=== PATIENT | female | born 1960 | race Caucasian/White ===

== ENCOUNTER 2017-07-29 12:02 | Observation (INO) | payer OTHER ==
--- NOTE | 2017-07-29 12:43 | PDOC ---
History of Present Illness - General Chief Complaint: Pain Stated Complaint: LEFT SHOULDER PAIN Time Seen by Provider: 07/29/17 12:05 History Source: Patient Exam Limitations: No Limitations - History of Present Illness Initial Comments: 07/29/17 12:39 The patient is a 57F with a PMH of hypothyroidism who presents to the ER with acute onset shoulder pain. The patient states that she was woken up out of sleep at 0100 this morning with a sudden onset pressure-like shoulder pain which has been constant, nonradiating, without any exacerbating or alleviating factors. She denies any CP, SOB, nausea, vomiting, but admits to feeling clammy and lightheaded. She states her father had a CABG at age 65. She also states she was evaluated for angina 10 years ago and has a hx of HTN but is no longer on any medications as it has resolved. Past History - Past Medical History Allergies/Adverse Reactions: Allergies Allergy/AdvReac Type Severity Reaction Status Date / Time No Known Allergies Allergy Verified 07/29/17 12:11 Home Medications: Ambulatory Orders Levothyroxine [Synthroid -] 100 mcg PO DAILY 11/13/15 Aspirin [ASA -] 324 mg PO ONCE PRN 07/29/17 COPD: No HTN: Yes (states no longer needs med) Thyroid Disease: Yes - Surgical History Abdominal Surgery: Yes (gastric bypass,sling) Cholecystectomy: Yes - Suicide/Smoking/Psychosocial Hx Smoking Status: No Smoking History: Never smoked Have you smoked in the past 12 months: No Number of Cigarettes Smoked Daily: 0 Information on smoking cessation initiated: No Hx Alcohol Use: No Drug/Substance Use Hx: No Substance Use Type: None Review of Systems - Review of Systems Able to Perform ROS?: Yes Comments:: 07/29/17 13:17 GENERAL/CONSTITUTIONAL: No fever or chills. No weakness. HEAD, EYES, EARS, NOSE AND THROAT: No change in vision. No ear pain or discharge. No sore throat. CARDIOVASCULAR: Positive for lightheadedness. No chest pain or palpitations. RESPIRATORY: No cough, wheezing, shortness of breath, or hemoptysis. GASTROINTESTINAL: No nausea, vomiting, diarrhea, constipation, or abdominal pain. GENITOURINARY: No dysuria, frequency, hematuria, or change in urination. MUSCULOSKELETAL: Positive for L shoulder pain which radiates to lateral L neck. SKIN: No rash or lesions. NEUROLOGIC: No headache, numbness, tingling, weakness, loss of consciousness, or change in strength/sensation. ENDOCRINE: No increased thirst. No abnormal weight change. HEMATOLOGIC/LYMPHATIC: No anemia, easy bleeding, or history of blood clots. ALLERGIC/IMMUNOLOGIC: No hives or skin allergy. Is the patient limited [place] proficient: No *Physical Exam - Physical Exam Comments: 07/29/17 13:25 GENERAL: Well developed, well nourished. Awake and alert. No acute distress. HEENT: Normocephalic, atraumatic. Hearing grossly normal. Moist mucous membranes. PERRLA, EOMI. No conjunctival pallor. Sclera are non-icteric. NECK: Supple. Full ROM. CARDIOVASCULAR: Regular rate and rhythm. No murmurs, rubs, or gallops. PULMONARY: No evidence of respiratory distress. Lungs clear to auscultation bilaterally. No wheezing, rales or rhonchi. ABDOMINAL: Soft. Non-tender. Non-distended. No rebound or guarding. GENITOURINARY: No CVA tenderness bilaterally. MUSCULOSKELETAL: Normal range of motion at all joints. No bony deformities or tenderness. EXTREMITIES: No cyanosis. No clubbing. No edema. No calf tenderness or swelling. SKIN: Warm and dry. Normal capillary refill. No rashes. No jaundice. NEUROLOGICAL: Alert, awake, appropriate. Cranial nerves 2-12 intact. Normal speech. Gait is normal without ataxia. PSYCHIATRIC: Cooperative. Good eye contact. Appropriate mood and affect. Heart Score/ECG Review #1 ECG reviewed & interpreted by me at: 13:01 General ECG Interpretation: Sinus Rhythm, Normal Rate, Normal Intervals, No acute ischemic changes Compared to previous ECG there are: Changes noted (See remarks) 07/29/17 13:27 NSR Vent rate 79 HI 150 QRS 82 QTc 447 LVH noted in aVL Unchanged T wave inversions in III and flattening in aVF No JONATAHN or STD ED Treatment Course - LABORATORY CBC & Chemistry Diagram: 07/29/17 12:25 07/29/17 12:25 Medical Decision Making - Medical Decision Making 07/29/17 13:37 The patient is a 57F with a PMH of hypothyroidism who presents with shoulder pain that is concerning for ACS. Pt has a positive family history, distant hx of angina and HTN. Will r/o ACS with EKG and trop. CXR, shoulder XR, CBC, CMP, trop, and EKG unremarkable. Given pt 325 asa. Heart score 4. Will admit for obs for cardiac workup. 07/29/17 15:14 I have discussed the case with Dr. Munoz who admits for Dr. Holder. He recommends following up with second trop. However, we agreed that if the patient has persistent pain, we can observe her even with a negative trop to monitor her pain and for repeat EKG's. Second EKG unremarkable. Pending second trop. 07/29/17 15:31 Repeat troponin negative. Pt is continuing to have pain and fluctuating BP's. Will order CTA of neck and chest. 07/29/17 17:00 CTA negative. Pt still complaining of L arm pain. Will admit to hospital for observation. Pt endorsed to Dr. Munoz. *DC/Admit/Observation/Transfer Diagnosis at time of Disposition: Chest pain - Discharge Dispostion Condition at time of disposition: Stable - Referrals Referrals: Tono Holder MD [Primary Care Provider] - - Patient Instructions - Post Discharge Activity
[2017-07-29 12:49] LABS: BASO % 0.7 % (0-2.0); EOS % 1.3 % (0-4.5); HEMATOCRIT 44.1 % (32.4-45.2); HEMOGLOBIN 14.7 GM/dl (10.7-15.3); LYMPH % 31.4 % (8-40); MCH 30.8 pg (25.7-33.7); MCHC 33.4 g/dl (32.0-36.0); MEAN CELL VOLUME 92.1 fl (80-96); MEAN PLT VOLUME 8.5 fl (7.5-11.1); MONO % 12.8 % (3.8-10.2); NEUT % 53.8 % (42.8-82.8); PLATELET COUNT 381 K/MM3 (134-434); RBC 4.78 M/mm3 (3.60-5.2); RDW 12.2 % (11.6-15.6); WHITE BLOOD COUNT 5.8 K/mm3 (4.0-10.8)
[2017-07-29] MEDS ORDERED: ASPIRIN COATED 81 MG TABLET.EC PO ONE (12:51)
[2017-07-29] MEDS ORDERED: ASPIRIN 325 MG TABLET ONE (12:52)
[2017-07-29 12:57] LABS: ALBUMIN 4.3 g/dl (3.5-5.0); ALK PHOS 98 U/L (32-92); ANION GAP 7 (8-16); BILIRUBIN,TOTAL 0.6 mg/dl (0.2-1.0); BLOOD UREA NITROGEN 10 mg/dl (7-18); CALCIUM 9.1 mg/dl (8.4-10.2); CHLORIDE 97 mmol/L (98-107); CO2 27 mmol/L (22-28); GLUCOSE,RANDOM 98 mg/dl (74-106); POTASSIUM 3.5 mmol/L (3.5-5.1); SGOT/AST 33 U/L (10-42); SGPT/ALT 34 U/L (10-40); SODIUM 131 mmol/L (136-145); TOT PROT 7.9 g/dl (6.4-8.3)
--- NOTE | 2017-07-29 13:01 | PDOC ---
Attending Attestation - Resident Resident Name: Jose Enrique Fernandez - ED Attending Attestation I have performed the following: I have examined & evaluated the patient, The case was reviewed & discussed with the resident, I agree w/resident's findings & plan, Exceptions are as noted - HPI HPI: 07/29/17 13:01 57-year-old female with a history of angina, hypothyroidism, hypertension ( was taken off BP meds 1 year ago due to lower BPs) presents emergency Department with sudden onset left shoulder pain radiating up the left neck and down the left proximal arm since 1 AM last night. Patient reports the pain woke her up from sleep and describes it as a "tightness." Patient was sleeping on her back at the time. Denies any recent trauma. She states the pain has been persistent and occurs at rest and with ambulation. While at work today, the patient appeared uncomfortable and her coworkers asked her what was wrong at which point she became clammy and lightheaded. At that point the patient transported herself to the emergency department for further evaluation. Denies any history of similar symptoms. Denies any shortness of breath. Denies smoking. Reports her father had a cardiac bypass at age 64. Patient was last evaluated by warehouse man 10 years ago and reports that she had a normal stress test and echo at the time. Denies fevers, chills, coughing. Denies any lower extremity edema. Denies focal weakness or numbness. Denies nausea or vomiting. - Physicial Exam PE: 07/29/17 13:05 GENERAL: Awake, alert, and fully oriented, in no acute distress HEAD: No signs of trauma EYES: PERRLA, EOMI, sclera anicteric, conjunctiva clear ENT: Auricles normal inspection, hearing grossly normal, nares patent, oropharynx clear without exudates. Moist mucosa NECK: Normal ROM, supple, no lymphadenopathy, JVD, or masses LUNGS: Breath sounds equal, clear to auscultation bilaterally. No wheezes, and no crackles HEART: Regular rate and rhythm, normal S1 and S2, no murmurs, rubs or gallops ABDOMEN: Soft, nontender, normoactive bowel sounds. No guarding, no rebound. No masses EXTREMITIES: Normal range of motion, no edema. No clubbing or cyanosis. No cords, erythema, or tenderness NEUROLOGICAL: Normal speech, cranial nerves intact, negative pronator drift, 5/ 5 strength in all 4 extremities, normal sensation to light touch in all 4 extremities, normal cerebellar exam, normal gait, normal reflexes and tone SKIN: Warm, Dry, normal turgor, no rashes or lesions noted. - Medical Decision Making 07/29/17 13:05 57-year-old female with a history of angina, hypertension, hypothyroidism presents emergency Department with atraumatic nonreproducible left shoulder pain. Vitals with mildly elevated blood pressure to 140/85. Exam unremarkable. EKG with evidence of left ventricular hypertrophy but no ST elevations. Patient also has T-wave inversion in lead 3 and flattening in aVF which is unchanged compared to old EKG. Differential is wide and includes but is not limited to unstable angina versus acute coronary syndrome versus musculoskeletal pain. Patient's heart score is 4-5 assuming a negative troponin. Plan: -labs -cxr -dispo 07/29/17 14:41 Initial set of labs wnl. CXR nl. Pt still has some persistent L shoulder pain and now also a gradual onset frontal headache. Case discussed with Dr. Munoz ( covering for Dr. Holder). Dr. Munoz recommends that if she feels better, we DC and have her f/u with him as her symptoms are atypical, with normal EKG and trops. He recommended that if pt has persistent sxs, however, that we should admit her overnight. Pt ordered for tylenol for pain, will rpt troponin at 3pm and reassess. 07/29/17 15:35 Rpt trop negative. On re-assessment, headache is resolved but pt states pain is migrating from L neck/shoulder down to her L chest. BP elevated and labile on recheck. Pt states she also feels nauseous. Given concern for dissection, will obtain CTA chest w/wo with higher cuts through the neck. 07/29/17 16:59 CTA negative for dissection but patient has more coronory artery calcifications than expected for age. Case discussed with Dr. Munoz who accepts pt for admission. Case discussed in detail with admitting physician including history, physical exam and ancillary studies. Admitting physician has assumed care for the patient, will follow all pending diagnostics and will complete the evaluation and treatment. Discharge Disposition - Diagnosis Chest pain - Discharge Dispostion Condition at time of disposition: Stable Last Admission D/C Date: 09/11/12 Decision to Admit order: Yes - Referrals Referrals: Tono Holder MD [Primary Care Provider] - - Patient Instructions - Post Discharge Activity Heart Score/ECG Review - History History: Moderately suspicious - Electrocardiogram EKG: Non specific repolarization disturbance - Age Age: 45-65 - Risk Factors Risk Factors Heart Score: Yes Hx Hypertension, Yes Positive family hx of cardiac disease Based on the list above the patient has:: 1-2 risk factors - Troponin Troponin: </= normal limit - Score Heart Score - Total: 4 #1 07/29/17 13:09 Twelve-lead EKG was performed and reviewed by me. Normal sinus rhythm, rate 79. Left axis deviation. Left ventricular hypertrophy. T wave inversion in lead 3 with T-wave flattening in aVF. Compared to previous EKG, left ventricular hypertrophy is new. #2 07/29/17 17:01 Twelve-lead EKG was performed and reviewed by me. Normal sinus rhythm, rate 63. Left axis deviation.+ LVH. No ST elevations. T wave inversion in lead 3 and T- wave flattening in aVF. When compared to EKG done 2 hours ago, no changes are identified.
[2017-07-29 13:04] LABS: CREATININE < 0.8 mg/dl (0.6-1.3)
[2017-07-29] MEDS ORDERED: ACETAMINOPHEN 1000 MG/100 ML VIAL (NON FORMULARY) IVPB ONE (14:07)
[2017-07-29] MEDS ORDERED: ACETAMINOPHEN INJECTION 100 ML IVPB ONE (14:13)
[2017-07-29] MEDS ORDERED: ONDANSETRON 4 MG/2 ML VIAL IVPUSH ONE (15:49)
[2017-07-29] MEDS ORDERED: ONDANSETRON 4 MG/2 ML VIAL ONE (16:05)
[2017-07-29 18:27] VITALS: BMI 27.0
[2017-07-29] MEDS ORDERED: IBUPROFEN 400 MG TABLET (FP) PO PRN (18:32)
--- NOTE | 2017-07-29 18:33 | HP ---
Admitting History and Physical - Primary Care Physician PCP: Tono Holder - Admission History of Present Illness: Er records reviewed. Case discussed with er physician. Per er records The patient is a 57F with a PMH of hypothyroidism who presents to the ER with acute onset shoulder pain. The patient states that she was woken up out of sleep at 0100 this morning with a sudden onset pressure-like shoulder pain which has been constant, nonradiating, without any exacerbating or alleviating factors. She denies any CP, SOB, nausea, vomiting, but admits to feeling clammy and lightheaded. She states her father had a CABG at age 65. She also states she was evaluated for angina 10 years ago and has a hx of HTN but is no longer on any medications as it has resolved. Pt seen / examined in tele mi ruled out ekgs - unremarkable cta -ve Pt kept for observation due to persistent vanegas. pt feels better now. History Source: Patient Limitations to Obtaining History: No Limitations - Past Medical History Endocrine: Yes: Hypothyroidism - Smoking History Smoking history: Never smoked Have you smoked in the past 12 months: No Aproximately how many cigarettes per day: 0 - Alcohol/Substance Use Hx Alcohol Use: No Home Medications - Allergies Allergies/Adverse Reactions: Allergies Allergy/AdvReac Type Severity Reaction Status Date / Time No Known Allergies Allergy Verified 07/29/17 12:11 - Home Medications Home Medications: Ambulatory Orders Levothyroxine [Synthroid -] 100 mcg PO DAILY 11/13/15 Aspirin [ASA -] 324 mg PO ONCE PRN 07/29/17 Review of Systems - Review of Systems Constitutional: reports: No Symptoms Eyes: reports: No Symptoms HENT: reports: No Symptoms Neck: reports: No Symptoms Cardiovascular: reports: Other (left shoulder pain/ chest pain) Respiratory: reports: No Symptoms Gastrointestinal: reports: No Symptoms Genitourinary: reports: No Symptoms Neurological: reports: No Symptoms Psychiatric: reports: No Symptoms Physical Examination Vital Signs: Vital Signs Temperature 97.8 F 07/29/17 18:25 Pulse Rate 66 07/29/17 18:25 Respiratory Rate 18 07/29/17 18:25 Blood Pressure 134/80 07/29/17 18:25 O2 Sat by Pulse Oximetry (%) 98 07/29/17 15:43 Constitutional: Yes: No Distress, Calm Eyes: Yes: Conjunctiva Clear Neck: Yes: Supple, Trachea Midline Cardiovascular: Yes: Regular Rate and Rhythm Respiratory: Yes: CTA Bilaterally Gastrointestinal: Yes: Normal Bowel Sounds, Soft Edema: No Neurological: Yes: Alert Psychiatric: Yes: Alert Labs: CBC, BMP 07/29/17 12:25 07/29/17 12:25 Imaging - Results Chest X-ray: Report Reviewed X-ray: Report Reviewed EKG: Report Reviewed Problem List - Problems (1) Chest pain Code(s): R07.9 - CHEST PAIN, UNSPECIFIED Assessment/Plan Aypical cp Unlikely color television console monitor tonight If stable - d/c in am Stress test advised as out pt - Discussed in detail with pt. Pt in agreement Discussed with nursing staff also
[2017-07-29] MEDS ORDERED: ASPIRIN 325 MG TABLET PO ONE (18:45)
[2017-07-29] MEDS: ACETAMINOPHEN 325 MG TABLET (FP) PO PRN (20:03)
[2017-07-29] MEDS ORDERED: HEPARIN NA (PORCINE) 5,000 UNITS/ML 1ML VIAL SQ SCH (22:00)
[2017-07-30] MEDS ORDERED: LEVOTHYROXINE NA 100 MCG TABLET (FP) PO SCH (07:00)
[2017-07-30 07:03] VITALS: BP 132/76; PULSE 59; TEMP 97.9
[2017-07-30 07:53] LABS: BASO % 0.6 % (0-2.0); EOS % 2.3 % (0-4.5); HEMATOCRIT 38.4 % (32.4-45.2); HEMOGLOBIN 13.2 GM/dl (10.7-15.3); LYMPH % 27.5 % (8-40); MCH 31.7 pg (25.7-33.7); MCHC 34.4 g/dl (32.0-36.0); MEAN CELL VOLUME 92.2 fl (80-96); MEAN PLT VOLUME 8.3 fl (7.5-11.1); MONO % 11.4 % (3.8-10.2); NEUT % 58.2 % (42.8-82.8); PLATELET COUNT 285 K/MM3 (134-434); RBC 4.16 M/mm3 (3.60-5.2); RDW 12.2 % (11.6-15.6); WHITE BLOOD COUNT 5.5 K/mm3 (4.0-10.8)
[2017-07-30] MEDS: ACETAMINOPHEN 325 MG TABLET (FP) PO PRN (08:23)
[2017-07-30 08:34] LABS: ALBUMIN 3.5 g/dl (3.5-5.0); ALK PHOS 82 U/L (32-92); ANION GAP 9 (8-16); BILIRUBIN,TOTAL 0.6 mg/dl (0.2-1.0); BLOOD UREA NITROGEN 9 mg/dl (7-18); CHLORIDE 98 mmol/L (98-107); CO2 27 mmol/L (22-28); GLUCOSE,RANDOM 197 mg/dl (74-106); POTASSIUM 3.8 mmol/L (3.5-5.1); SGOT/AST 28 U/L (10-42); SGPT/ALT 26 U/L (10-40); SODIUM 134 mmol/L (136-145); TOT PROT 6.5 g/dl (6.4-8.3)
[2017-07-30 08:39] LABS: CREATININE < 0.8 mg/dl (0.6-1.3)
[2017-07-30 08:40] LABS: CHOLESTEROL 245 mg/dl; HDL CHOLESTEROL 57 mg/dl (29-89); LDL CHOLESTEROL (ONLY DFH) 155 mg/dl; TRIGLYCERIDES 165 mg/dl (35-160)
--- NOTE | 2017-07-30 11:09 | DS ---
Physical Examination Vital Signs: Vital Signs Temperature 97.9 F 07/30/17 06:00 Pulse Rate 59 L 07/30/17 06:00 Respiratory Rate 20 07/30/17 06:00 Blood Pressure 132/76 07/30/17 06:00 O2 Sat by Pulse Oximetry (%) 97 07/30/17 06:00 Findings/Remarks: feels ok concerned about bp. wants to start meds Also contributes to stress denies cp. no sob lipid elevated Constitutional: Yes: No Distress, Calm Eyes: Yes: Conjunctiva Clear Neck: Yes: Supple Cardiovascular: Yes: Regular Rate and Rhythm Respiratory: Yes: CTA Bilaterally Gastrointestinal: Yes: Soft Edema: No Labs: CBC, BMP 07/30/17 07:33 07/30/17 07:33 Discharge Summary Reason For Visit: LEFT SHOULDER PAIN Current Active Problems Chest pain (Acute) Hospital Course: Admitted for atypical cp. RI/ dissection ruled out will start on amlodipine/ lipitor/ baby asprin. Counselling provided about diet/ cholesterol/ bp etc stress test as out pt pt to follow with Dr. Gallo hidalgo Pt in agreement Discussed with nursing staqff TSH is pending Meds reconciled. D/c time 35 min . Condition: Stable - Instructions Referrals: Tono Holder MD [Primary Care Provider] - Disposition: HOME - Home Medications Comprehensive Discharge Medication List: Ambulatory Orders Levothyroxine [Synthroid -] 100 mcg PO DAILY 11/13/15 Acetaminophen [Tylenol .Regular Strength -] 650 mg PO Q4H PRN tablet 07/30/17 Amlodipine Besylate [Norvasc -] 5 mg PO DAILY #30 tablet 07/30/17 Aspirin [ASA -] 81 mg PO DAILY #30 tab.chew 07/30/17 Atorvastatin Ca [Lipitor] 10 mg PO HS #30 tablet 07/30/17 Ibuprofen [Motrin -] 400 mg PO Q6H PRN tablet 07/30/17
--- NOTE | 2017-07-31 22:38 | EKG ---
Test Reason : Blood Pressure : / mmHG Vent. Rate : 063 BPM Atrial Rate : 063 BPM P-R Int : 156 ms QRS Dur : 082 ms QT Int : 434 ms P-R-T Axes : 048 -28 -03 degrees QTc Int : 444 ms NORMAL SINUS RHYTHM MINIMAL VOLTAGE CRITERIA FOR LVH, MAY BE NORMAL VARIANT BORDERLINE ECG WHEN COMPARED WITH ECG OF 29-JUL-2017 12:19, NO SIGNIFICANT CHANGE WAS FOUND Confirmed by GERARDO HARPER MD ([id number]) on 07/31/2017 10:38:27 PM Referred By: Amberly MCCURDY Confirmed By:GERARDO HARPER MD
--- NOTE | 2017-07-31 22:39 | EKG ---
Test Reason : Blood Pressure : / mmHG Vent. Rate : 079 BPM Atrial Rate : 079 BPM P-R Int : 150 ms QRS Dur : 082 ms QT Int : 390 ms P-R-T Axes : 039 -31 002 degrees QTc Int : 447 ms NORMAL SINUS RHYTHM POSSIBLE LEFT ATRIAL ENLARGEMENT LEFT AXIS DEVIATION LEFT VENTRICULAR HYPERTROPHY ABNORMAL ECG WHEN COMPARED WITH ECG OF 26-JUL-2013 20:04, NO SIGNIFICANT CHANGE WAS FOUND Confirmed by GERARDO HARPER MD ([id number]) on 07/31/2017 10:38:44 PM Referred By: Amberly MCCURDY Confirmed By:GERARDO HARPER MD
== END 2017-07-30 11:40 | disposition home or self-care (01) ==
LOC: FER 12:02 → FM/S 16:59
PROVIDERS: ADMIT Internal Medicine; ATTEND Internal Medicine
PROC: 3E033NZ Introduction of Analgesics, Hypnotics, Sedatives into Peripheral Vein, Percutaneous Approach (ICD-10-PCS; principal; 2017-07-29)
PROC: 3E033GC Introduction of Other Therapeutic Substance into Peripheral Vein, Percutaneous Approach (ICD-10-PCS; 2017-07-29)
PROC: 3E013GC Introduction of Other Therapeutic Substance into Subcutaneous Tissue, Percutaneous Approach (ICD-10-PCS; 2017-07-29)
DX: R07.9 Chest pain, unspecified (principal); M25.512 Pain in left shoulder; E03.9 Hypothyroidism, unspecified; Z79.82 Long term (current) use of aspirin; Z98.84 Bariatric surgery status
CPT/HCPCS: 36415; 71046-TC-FY; 71270-TC; 73030-TC-LT-FY; 80053; 80061; 84443; 84484; 85025; 93005; 99285-25; G0378; J0131; J1644

== ENCOUNTER 2018-05-23 10:23 | Emergency (ER) | payer OTHER ==
[2018-05-23 10:27] VITALS: TEMP 97.6; BMI 25.5
--- NOTE | 2018-05-23 10:39 | PDOC ---
History of Present Illness - General Chief Complaint: Back Pain Stated Complaint: righ lower back pain Time Seen by Provider: 05/23/18 10:31 History Source: Patient (Patient complains of left lower back pain , frequent urination and foul smell of her urine.) Exam Limitations: No Limitations - History of Present Illness Timing/Duration: unsure, getting worse Severity: moderate Past History - Travel Traveled outside of the country in the last 30 days: No Close contact w/someone who was outside of country & ill: No - Past Medical History Allergies/Adverse Reactions: Allergies Allergy/AdvReac Type Severity Reaction Status Date / Time No Known Allergies Allergy Verified 05/23/18 10:24 Home Medications: Ambulatory Orders Levothyroxine [Synthroid -] 100 mcg PO DAILY 11/13/15 Ibuprofen [Motrin -] 400 mg PO Q6H PRN tablet 07/30/17 levoFLOXacin [Levaquin] 750 mg PO DAILY #5 tab 05/23/18 COPD: No HTN: Yes Thyroid Disease: Yes - Surgical History Abdominal Surgery: Yes (gastric bypass,sling) Cholecystectomy: Yes Other Surgical History: hysterectomy 05/30/18 18:03 - Suicide/Smoking/Psychosocial Hx Smoking Status: No Smoking History: Never smoked Have you smoked in the past 12 months: No Number of Cigarettes Smoked Daily: 0 Hx Alcohol Use: No Drug/Substance Use Hx: No Substance Use Type: None Review of Systems - Review of Systems Able to Perform ROS?: Yes Is the patient limited Citizen [place] proficient: Yes Constitutional: Yes: Symptoms Reported, Malaise HEENTM: No: Symptoms Reported, See HPI, Eye Pain, Blurred Vision, Tearing, Recent change in vision, Double Vision, Cataracts, Ear Pain, Ocular Prothesis, Ear Discharge, Nose Pain, Nose Congestion, Tinnitus, Nose Bleeding, Hearing Loss , Throat Pain, Throat Swelling, Mouth Pain, Dental Problems, Difficulty Swallowing, Mouth Swelling, Other Respiratory: No: Symptoms reported, See HPI, Cough, Orthopnea, Shortness of Breath, SOB with Exertion, SOB at Rest, Stridor, Wheezing, Productive cough, Hemoptysis, Other Cardiac (ROS): No: Symptoms Reported, See HPI, Chest Pain, Edema, Irregular Heart Rate, Lightheadedness, Palpitations, Syncope, Chest Tightness, Other ABD/GI: No: Symptoms Reported, See HPI, Abdominal Distended, Abd. Pain w/ defecation, Blood Streaked Bowels, Constipated, Diarrhea, Difficulty Swallowing , Nausea, Poor Appetite, Poor Fluid Intake, Rectal Bleeding, Vomiting, Indigestion, Abdominal cramping, Tarry Stools, Other : Yes: Dysuria, Frequency, Flank Pain Musculoskeletal: No: Symptoms Reported, See HPI, Back Pain, Gout, Joint Pain, Joint Swelling, Muscle Pain, Muscle Weakness, Neck Pain, Joint Stiffness, Other All Other Systems: Reviewed and Negative *Physical Exam - Vital Signs Last Vital Signs Temp Pulse Resp BP Pulse Ox 97.6 F 88 18 146/100 100 05/23/18 10:23 05/23/18 10:23 05/23/18 10:23 05/23/18 10:23 05/23/18 10:23 - Physical Exam General Appearance: Yes: Nourished, Appropriately Dressed, Moderate Distress HEENT: positive: SUZY Neck: positive: Supple Respiratory/Chest: positive: Lungs Clear Musculoskeletal: positive: Normal Inspection Extremity: positive: Normal Capillary Refill Integumentary: positive: Normal Color, Dry Neurologic: positive: Fully Oriented, Alert ED Treatment Course - LABORATORY CBC & Chemistry Diagram: 05/23/18 10:56 05/23/18 10:56 *DC/Admit/Observation/Transfer Diagnosis at time of Disposition: UTI (urinary tract infection) Qualifiers: Urinary tract infection type: acute cystitis Hematuria presence: with hematuria Qualified Code(s): N30.01 - Acute cystitis with hematuria - Discharge Dispostion Disposition: HOME Condition at time of disposition: Improved Decision to Admit order: No - Prescriptions Prescriptions: levoFLOXacin [Levaquin] 750 mg PO DAILY #5 tab - Referrals Referrals: Tono Holder MD [Staff Physician] - - Patient Instructions Printed Discharge Instructions: DI for Urinary Tract Infection (UTI) Additional Instructions: Fluids, check with your doctor - Post Discharge Activity Forms/Work/School Notes: Back to Work
[2018-05-23 11:35] LABS: ALBUMIN 3.6 g/dl (3.4-5.0); ALK PHOS 101 U/L (45-117); ANION GAP 9 MMOL/L (8-16); BILIRUBIN,TOTAL 0.5 mg/dl (0.2-1); BLOOD UREA NITROGEN 7 mg/dl (7-18); CALCIUM 8.5 mg/dl (8.5-10); CHLORIDE 98 mmol/L (98-107); CO2 25 mmol/L (21-32); CREATININE 0.6 mg/dl (0.55-1.3); GLUCOSE,RANDOM 110 mg/dl (74-106); SGOT/AST 22 U/L (15-37); SGPT/ALT 13 U/L (13-61); SODIUM 132 mmol/L (136-145); TOT PROT 6.6 g/dl (6.4-8.2)
[2018-05-23 11:37] LABS: BASO % 0.2 % (0-2.0); EOS % 0.7 % (0-4.5); HEMATOCRIT 38.5 % (32.4-45.2); HEMOGLOBIN 12.5 GM/dl (10.7-15.3); LYMPH % 22.3 % (8-40); MCH 29.4 pg (25.7-33.7); MCHC 32.5 g/dl (32.0-36.0); MEAN CELL VOLUME 90.5 fl (80-96); MEAN PLT VOLUME 9.1 fl (7.5-11.1); MONO % 14.5 % (3.8-10.2); NEUT % 62.3 % (42.8-82.8); PLATELET COUNT 410 K/MM3 (134-434); RBC 4.26 M/mm3 (3.60-5.2); RDW 13.8 % (11.6-15.6); WHITE BLOOD COUNT 5.6 K/mm3 (4.0-10.8)
[2018-05-23] MEDS ORDERED: IBUPROFEN 600 MG TABLET (FP) PO ONE ×2 (12:30→12:32)
[2018-05-23] MEDS ORDERED: levoFLOXacin 750 MG TABLET PO SCH (12:30)
[2018-05-23 12:54] VITALS: BP 150/91; PULSE 86
[2018-05-24 14:24] LABS: EPI CELLS 1+ /HPF; URINE BACTERIA 3+ /hpf (NEGATIVE)
== END 2018-05-23 12:59 | disposition home or self-care (01) ==
LOC: FER 10:23
DX: N30.01 Acute cystitis with hematuria (principal); I10 Essential (primary) hypertension; E07.9 Disorder of thyroid, unspecified; Z98.84 Bariatric surgery status
CPT/HCPCS: 36415; 76775-TC; 76856-TC; 80053; 81015; 85025; 87086; 87186; 99283-25

== ENCOUNTER 2018-08-23 20:10 | Emergency (ER) | payer OTHER ==
[2018-08-23 20:27] VITALS: BP 155/94; PULSE 92; TEMP 97.9; BMI 26.2
--- NOTE | 2018-08-23 22:03 | PDOC ---
Documentation entered by Siena Barba SCRIBE, acting as scribe for Mirella Funez MD. Mirella Funez MD: This documentation has been prepared by the Jameson morel Sammi, SCRIBE, under my direction and personally reviewed by me in its entirety. I confirm that the documentation accurately reflects all work, treatment, procedures, and medical decision making performed by me. History of Present Illness - General Chief Complaint: Edema Stated Complaint: RIGHT FOOT SWELLING TODAY Time Seen by Provider: 08/23/18 20:22 History Source: Patient Exam Limitations: No Limitations - History of Present Illness Initial Comments: 08/23/18 20:32 The patient is a 58 year old female, who presents to the emergency department for evaluation of right foot swelling and discomfort. Denies injury or trauma. Denies recent travel. PAST MEDICAL HISTORY: Thyroid disease PAST SURGICAL HISTORY: no significant history FAMILY HISTORY: mother has hx of blood clots SOCIAL HISTORY: Pt lives with family and is employed. MEDICATIONS: reviewed ALLERGIES: As per nursing notes Adult ROS General: No fevers or chills, no weakness, no weight loss HEENT: No change in vision. No sore throat,. No ear pain CardioVascular: No chest pain or shortness of breath Respiratory:No cough, or wheezing. Gastrointestinal: no nausea, vomiting, diarrhea or constipation, No rectal bleeding Genitourinary: No dysuria, hematuria, or frequency Musculoskeletal: (+)Right foot swelling and discomfort All other systems reviewed and normal Adult Exam GENERAL: The patient is awake, alert, and fully oriented, in no acute distress. HEAD: Normal with no signs of trauma. EYES: Pupils equal, round and reactive to light, extraocular movements intact, sclera anicteric, conjunctiva clear. EXTREMITIES: (+) mild edema to dorsum of right foot. No edema to ankle, calf or knee. NEUROLOGICAL: Normal speech, normal gait. SKIN: Warm, Dry, normal turgor, no rashes or lesions noted. Assessment and plan: This is a 58-year-old female who comes in complaining of right foot swelling. Patient has a family history of DVTs. Patient otherwise denies any complaints. Patient denies any trauma or pain to the foot. Patient had an ultrasound that was negative for any DVT Patient discharged home will follow-up with her primary care doctor Past History - Past Medical History Allergies/Adverse Reactions: Allergies Allergy/AdvReac Type Severity Reaction Status Date / Time No Known Allergies Allergy Verified 08/23/18 20:11 Home Medications: Ambulatory Orders Levothyroxine [Synthroid -] 100 mcg PO DAILY 11/13/15 COPD: No HTN: Yes Thyroid Disease: Yes - Surgical History Abdominal Surgery: Yes (gastric bypass,sling) Cholecystectomy: Yes Gastric Stapling: Yes - Suicide/Smoking/Psychosocial Hx Smoking Status: No Smoking History: Never smoked Have you smoked in the past 12 months: No Number of Cigarettes Smoked Daily: 0 Hx Alcohol Use: Yes (SOCIAL) Drug/Substance Use Hx: No Substance Use Type: None *Physical Exam - Vital Signs Last Vital Signs Temp Pulse Resp BP Pulse Ox 97.9 F 92 H 16 155/94 100 08/23/18 20:11 08/23/18 20:11 08/23/18 20:11 08/23/18 20:11 08/23/18 20:11 ED Treatment Course - RADIOLOGY Radiology Studies Ordered: Category Date Time Status DUPLEX VASCUL US-1 LEG [US] Stat Ultrasound 08/23/18 20:29 Completed *DC/Admit/Observation/Transfer Diagnosis at time of Disposition: Edema of right foot - Discharge Dispostion Disposition: HOME Condition at time of disposition: Stable Decision to Admit order: No - Referrals Referrals: Tono Holder MD [Primary Care Provider] - - Patient Instructions Additional Instructions: Your ultrasound was negative for any blood clot. It is important to follow up with your primary care doctor to further evaluate what the swelling is from. Return to the emergency department immediately with ANY new, persistent or worsening symptoms. Continue any medications as previously prescribed by your physician. You should follow up with your primary doctor as soon as possible regarding today's emergency department visit. . Please make sure your doctor reviews the results of your emergency evaluation. Thank you for coming to the Emergency Department today for your care. It was a pleasure to see you today. Please note that your evaluation is INCOMPLETE until you follow-up with your doctor. - Post Discharge Activity
== END 2018-08-23 22:06 | disposition home or self-care (01) ==
LOC: FER 20:10
DX: M79.89 Other specified soft tissue disorders (principal); I10 Essential (primary) hypertension; Z98.84 Bariatric surgery status
CPT/HCPCS: 93971-TC; 99281-25

== ENCOUNTER 2018-10-04 19:12 | Emergency (ER) | payer OTHER ==
[2018-10-04 19:19] VITALS: BP 171/101; PULSE 81; TEMP 98.2; BMI 26.2
--- NOTE | 2018-10-05 02:49 | PDOC ---
Documentation entered by Ying Orozco SCRIBE, acting as scribe for Марина Garcia MD. Марина Garcia MD: This documentation has been prepared by the timibeErnesto Lincy, SCRIBE, under my direction and personally reviewed by me in its entirety. I confirm that the documentation accurately reflects all work, treatment, procedures, and medical decision making performed by me. History of Present Illness - General Chief Complaint: Bite Stated Complaint: INSECT BITE LEFT ARM RED AND SWOLLEN History Source: Patient Exam Limitations: No Limitations - History of Present Illness Initial Comments: 10/04/18 21:04 The patient is a 58-year-old female with a past medical history significant for thyroid disease (on Synthroid) presents to the emergency department with redness to the left arm and itching to the right foot. The patient reports she was visiting her mother on Tuesday, where she might have sustained mosquitos bite to her left arm and right foot. The patient reports since Tuesday, shes been having itchiness to the left foot, and yesterday she noticed redness to her left arm. The patient reports the wound on her left arm is painful to touch. Denies fever or chills. Past History - Past Medical History Allergies/Adverse Reactions: Allergies Allergy/AdvReac Type Severity Reaction Status Date / Time No Known Allergies Allergy Verified 08/23/18 20:11 Home Medications: Ambulatory Orders Levothyroxine [Synthroid -] 100 mcg PO DAILY 11/13/15 Amox-Tr/K Cl [Augmentin - 875Mg Tablet] 1 tab PO BID #10 tablet 10/04/18 COPD: No HTN: Yes Thyroid Disease: Yes - Surgical History Abdominal Surgery: Yes (gastric bypass,) Cholecystectomy: Yes Gastric Stapling: Yes - Suicide/Smoking/Psychosocial Hx Smoking Status: No Smoking History: Never smoked Have you smoked in the past 12 months: No Number of Cigarettes Smoked Daily: 0 Information on smoking cessation initiated: No Hx Alcohol Use: Yes (OCCSSIONAL) Drug/Substance Use Hx: No Substance Use Type: None Review of Systems - Review of Systems Able to Perform ROS?: Yes Comments:: 10/04/18 21:04 Constitutional - Pt denies Fever, Chills, weakness, HEENT: denies vision changes, sore throat Respiratory: Denies cough, sob, hemoptysis Cardiac: denies chest pain, palpitations, lightheadedness, leg swelling Abd/GI: denies abd pain, nausea, vomiting, blood per rectum, melena, diarrhea : denies dysuria, frequency, discharge Musculoskeletal - denies back pain, joint swelling skin - +redness to the left arm. +itching to the right foot. denies bruising. neurological: denies headache, numbness, focal weakness, tingling, ataxia, weakness hematologic: denies anemia, easy bruising, easy bleeding *Physical Exam - Vital Signs Last Vital Signs Temp Pulse Resp BP Pulse Ox 98.2 F 81 16 171/101 H 100 10/04/18 19:12 10/04/18 19:12 10/04/18 19:12 10/04/18 19:12 10/04/18 19:12 - Physical Exam Comments: 10/04/18 21:04 GENERAL: The patient is awake, alert, and fully oriented, in no acute distress. SKIN: +2 cm circumference, mildly tender, indurated, non-fluctuant area of erythema to the medial portion of the left upper arm, surrounded by 3 cm of bordered erythema. Warm, Dry, normal turgor, no other rashes or lesions noted. Medical Decision Making - Medical Decision Making As noted above, this 58-year-old woman with no significant past medical history and no known sensitivity to insect toxin presents with altered full mosquito bites sustained while visiting her mother 2 days ago. Her lower extremity insect bites are pruritic but there is an area of induration, erythema, increased warmth and tenderness of the medial aspect of her left upper arm. No fluctuance or discharge present from the area Although this is borderline time between inflammatory response to toxin versus secondary bacterial infection, upper arm indurated area more consistent with early cellulitis. Therefore, patient will be started on Augmentin 875/125 twice a day. She has been strongly advised to take each dose of the medication with a meal. Since she has not eaten since 1 p.m. today, first dose will not be given now; prescription sent to her 24-hour pharmacy. She should take medication when she gets home with a full meal. If she has any worsening of pain/induration/erythema, she should return here or see her PMD *DC/Admit/Observation/Transfer Diagnosis at time of Disposition: Cellulitis Qualifiers: Site of cellulitis: extremity Site of cellulitis of extremity: upper extremity Laterality: left Qualified Code(s): L03.114 - Cellulitis of left upper limb - Discharge Dispostion Disposition: HOME Condition at time of disposition: Stable - Prescriptions Prescriptions: Amox-Tr/K Cl [Augmentin - 875Mg Tablet] 1 tab PO BID #10 tablet - Referrals - Patient Instructions Printed Discharge Instructions: DI for Cellulitis -- Adult Additional Instructions: Warm compresses to left upper arm 3 times a day for the next 5 days Augmentin 875/125 twice a day for 5 daystake with meal Can use Benadryl 25 mg up to 3 times a day as needed for itching Return here or see your doctor if arm becomes more painful or swollen or you develop fever/chills Follow-up with your general medical doctor within the next 3-4 days - Post Discharge Activity
== END 2018-10-04 21:08 | disposition home or self-care (01) ==
LOC: FER 19:12
DX: L03.114 Cellulitis of left upper limb (principal); S40.862A Insect bite (nonvenomous) of left upper arm, initial encounter; Y93.9 Activity, unspecified; Y92.9 Unspecified place or not applicable; Z98.84 Bariatric surgery status; I10 Essential (primary) hypertension; E07.9 Disorder of thyroid, unspecified
CPT/HCPCS: 99281-25

== ENCOUNTER 2021-07-20 17:38 | Emergency (ER) | payer OTHER ==
[2021-07-20 17:53] VITALS: BP 141/81; PULSE 88; TEMP 98.3; BMI 27.9
== END 2021-07-20 18:39 | disposition home or self-care (01) ==
LOC: FER 17:38
DX: M79.645 Pain in left finger(s) (principal)
CPT/HCPCS: 73130-TC-LT-FY; 99284-25

== ENCOUNTER 2022-01-11 10:00 | Emergency (ER) | payer OTHER ==
[2022-01-11] MEDS ORDERED: ALPRAZolam 0.25 MG TABLET PO ONE (10:17)
[2022-01-11 10:23] VITALS: BP 143/96; PULSE 88; RESP 20; TEMP 98; BMI 23.3
[2022-01-11] MEDS ORDERED: ALPRAZolam 0.25 MG TABLET ONE (10:24)
== END 2022-01-11 11:00 | disposition home or self-care (01) ==
LOC: FER 10:00
DX: R51.9 Headache, unspecified (principal); V43.52XA Car driver injured in collision with other type car in traffic accident, initial encounter
CPT/HCPCS: 99283-25

== ENCOUNTER 2022-06-15 12:38 | Inpatient (IN) | payer OTHER ==
[2022-06-15] MEDS ORDERED: ACETAMINOPHEN 500 MG TABLET (FP) PO ONE (13:07)
[2022-06-15] MEDS ORDERED: SODIUM CHLORIDE 0.9% 500 ML INFUS.BAG IV ONE (13:18)
[2022-06-15] MEDS ORDERED: ACETAMINOPHEN 325 MG TABLET (FP) ONE (13:18)
[2022-06-15 14:03] LABS: HEMATOCRIT 40.3 % (32.4-45.2); HEMOGLOBIN 13.7 G/dL (10.7-15.3); MCH 33.5 pg (25.7-33.7); MEAN CELL VOLUME 98.5 fl (80-96); MEAN PLT VOLUME 8.6 fl (7.5-11.1); RBC 4.09 10^6/uL (3.60-5.2); RDW 14.5 % (11.6-15.6); WHITE BLOOD COUNT 18.9 10^3/uL (4.0-10.8)
[2022-06-15 14:04] LABS: ALBUMIN 3.3 g/dl (3.4-5.0); CALCIUM 8.3 mg/dl (8.5-10); TOT PROT 7.1 g/dl (6.4-8.2)
[2022-06-15 14:07] LABS: EPITHELIAL CELLS MODERATE /hpf
[2022-06-15] MEDS ORDERED: CEFTRIAXONE 1 GM in DEXTROSE 5%-WATER - 100 ML IVPB ONE (14:10)
[2022-06-15] MEDS ORDERED: cefTRIAXone SODIUM 1 GM VIAL ONE (14:19)
[2022-06-15 14:37] LABS: PLATELET ESTIMATE ADEQUATE
[2022-06-15] MEDS ORDERED: SODIUM CHLORIDE 1,000 ML IV SCH (14:45)
[2022-06-15 18:32] VITALS: BMI 25.2
[2022-06-15 22:19] LABS: CALCIUM 7.9 mg/dl (8.5-10); CREATININE 0.9 mg/dl (0.55-1.3)
[2022-06-15] MEDS: ACETAMINOPHEN 325 MG TABLET (FP) PO PRN (22:24)
[2022-06-16 08:55] LABS: ALBUMIN 2.6 g/dl (3.4-5.0); BILIRUBIN,TOTAL 0.8 mg/dl (0.2-1); MAGNESIUM 1.9 mg/dL (1.8-2.4); PHOSPHOROUS 3.6 mg/dl (2.5-4.9)
[2022-06-16 09:49] LABS: HEMATOCRIT 35.1 % (32.4-45.2); HEMOGLOBIN 12.1 GM/dL (10.7-15.3); MCH 33.4 pg (25.7-33.7); MCHC 34.4 g/dl (32.0-36.0); MEAN CELL VOLUME 96.9 fl (80-96); MEAN PLT VOLUME 8.8 fl (7.5-11.1); PLATELET COUNT 223 10^3/uL (134-434); RBC 3.63 M/mm3 (3.60-5.2); RDW 14.1 % (11.6-15.6); WHITE BLOOD COUNT 12.6 K/mm3 (4.0-10.0)
[2022-06-16] MEDS: CEFTRIAXONE 1 GM in DEXTROSE 5%-WATER - 50 ML IVPB SCH (10:21)
[2022-06-16] MEDS: LACTOBACILLUS ACIDOPHILUS 1 TABLET PO SCH (10:22)
[2022-06-16 11:04] LABS: ANISOCYTOSIS 0; HELMET CELLS 0; HOWELL-JOLLY BODIES 0; MACROCYTOSIS 0; OVALOCYTE 0; ROULEAU 0; SICKELED CELLS 0; TARGET CELLS 0; TEAR DROP CELLS 0; TOXIC GRANULATION 0
[2022-06-16] MEDS: AZITHROMYCIN IVPB 500 MG/250 ML BAG IVPB SCH (14:32)
[2022-06-16] MEDS: ACETAMINOPHEN 325 MG TABLET (FP) PO PRN ×2 (15:30→22:17)
[2022-06-17 08:36] LABS: ALBUMIN 2.3 g/dl (3.4-5.0); BILIRUBIN,TOTAL 0.5 mg/dl (0.2-1); CALCIUM 7.8 mg/dl (8.5-10); CREATININE 0.7 mg/dl (0.55-1.3); MAGNESIUM 1.9 mg/dL (1.8-2.4); PHOSPHOROUS 2.1 mg/dl (2.5-4.9); TOT PROT 5.6 g/dl (6.4-8.2)
[2022-06-17] MEDS ORDERED: POTASSIUM CHLORIDE ORAL LIQUID 20 MEQ/15 ML PO ONE (09:03)
[2022-06-17] MEDS ORDERED: POTASSIUM PHOSPHATE 15 MM in SODIUM CHLORIDE 250 ML IVPB ONE (09:15)
[2022-06-17 10:00] LABS: BASO % 0.2 % (0-2.0); EOS % 0.1 % (0-4.5); HEMATOCRIT 31.4 % (32.4-45.2); HEMOGLOBIN 11.1 GM/dL (10.7-15.3); LYMPH % 4.7 % (8-40); MCH 33.7 pg (25.7-33.7); MCHC 35.2 g/dl (32.0-36.0); MEAN CELL VOLUME 95.7 fl (80-96); MEAN PLT VOLUME 8.7 fl (7.5-11.1); MONO % 8.3 % (3.8-10.2); NEUT % 86.7 % (42.8-82.8); PLATELET COUNT 232 10^3/uL (134-434); RBC 3.28 M/mm3 (3.60-5.2); RDW 14.3 % (11.6-15.6); WHITE BLOOD COUNT 7.6 K/mm3 (4.0-10.0)
[2022-06-17] MEDS: AZITHROMYCIN IVPB 500 MG/250 ML BAG IVPB SCH (10:49)
[2022-06-17] MEDS: LACTOBACILLUS ACIDOPHILUS 1 TABLET PO SCH (10:49)
[2022-06-17] MEDS: CEFTRIAXONE 1 GM in DEXTROSE 5%-WATER - 50 ML IVPB SCH (10:49)
[2022-06-17] MEDS: ACETAMINOPHEN 325 MG TABLET (FP) PO PRN (18:19)
[2022-06-17] MEDS ORDERED: SENNOSIDES 8.6MG TABLET (FP) PO SCH (22:00)
[2022-06-17 22:34] VITALS: RESP 18
[2022-06-18] MEDS: LACTOBACILLUS ACIDOPHILUS 1 TABLET PO SCH (09:11)
[2022-06-18] MEDS: CEFTRIAXONE 1 GM in DEXTROSE 5%-WATER - 50 ML IVPB SCH (09:11)
[2022-06-18 09:21] VITALS: BP 118/63; PULSE 88; TEMP 99.2
[2022-06-18 09:22] LABS: ALBUMIN 2.4 g/dl (3.4-5.0); BILIRUBIN,TOTAL 0.3 mg/dl (0.2-1); CALCIUM 8.1 mg/dl (8.5-10); CREATININE 0.7 mg/dl (0.55-1.3); MAGNESIUM 1.8 mg/dL (1.8-2.4); PHOSPHOROUS 2.8 mg/dl (2.5-4.9); TOT PROT 5.8 g/dl (6.4-8.2)
[2022-06-18 12:04] LABS: HEMATOCRIT 32.3 % (32.4-45.2); MCHC 34.2 g/dl (32.0-36.0); MEAN CELL VOLUME 96.5 fl (80-96); MEAN PLT VOLUME 8.6 fl (7.5-11.1); PLATELET COUNT 260 10^3/uL (134-434); RBC 3.35 M/mm3 (3.60-5.2); RDW 14.4 % (11.6-15.6); WHITE BLOOD COUNT 5.7 K/mm3 (4.0-10.0)
[2022-06-18 12:55] LABS: ANISOCYTOSIS 0; MACROCYTOSIS 0
== END 2022-06-18 18:10 | disposition home or self-care (01) | DRG 872 ==
LOC: FER 12:38 → INTOOBSV 14:21 → FM/S 14:21 → UNDOADMOB 14:21 → FM/S 15:36 → OBSVTOIN 06-17 13:11
PROVIDERS: ADMIT Internal Medicine; ATTEND Internal Medicine
DX: A41.9 Sepsis, unspecified organism (principal); E87.1 Hypo-osmolality and hyponatremia; N12 Tubulo-interstitial nephritis, not specified as acute or chronic; I10 Essential (primary) hypertension; R55 Syncope and collapse; E86.1 Hypovolemia; B96.20 Unspecified Escherichia coli [E. coli] as the cause of diseases classified elsewhere
CPT/HCPCS: 0241U-QW; 36415; 70450-TC; 71045-TC-FY; 71046-TC-FY; 72125-TC; 73030-TC-LT-FY; 74177-TC; 76775-TC; 80048; 80053; 81003; 81015; 82550; 83690; 83735; 84100; 85025; 87040; 87086; 87186; 87899; 93005; 97116-GP; 97162-GP; 99291; G0378; Q9967

== ENCOUNTER 2023-01-05 12:10 | Observation (INO) | payer OTHER ==
[2023-01-05] MEDS ORDERED: SODIUM CHLORIDE 0.9% 500 ML INFUS.BAG IV ONE (12:37)
[2023-01-05] MEDS ORDERED: KETOROLAC TROMETHAMINE 15 MG/ML VIAL IVPUSH ONE (12:37)
[2023-01-05] MEDS ORDERED: KETOROLAC TROMETHAMINE 15 MG/ML VIAL ONE (12:39)
[2023-01-05 13:08] LABS: HEMATOCRIT 42.4 % (32.4-45.2); HEMOGLOBIN 14.1 G/dL (10.7-15.3); MCH 32.7 pg (25.7-33.7); MCHC 33.3 g/dl (32.0-36.0); MEAN PLT VOLUME 8.5 fl (7.5-11.1); PLATELET COUNT 266.6 10^3/uL (134-434); RBC 4.33 10^6/uL (3.60-5.2); RDW 13.3 % (11.6-15.6); WHITE BLOOD COUNT 3.8 10^3/uL (4.0-10.8)
[2023-01-05 13:16] LABS: ALBUMIN 4.2 g/dl (3.4-5.0); BILIRUBIN,TOTAL 0.6 mg/dl (0.2-1); CREATININE 0.7 mg/dl (0.6-1.3); POTASSIUM 3.7 mmol/L (3.5-5.1); TOT PROT 7.3 g/dl (6.4-8.2)
[2023-01-05] MEDS ORDERED: CEFTRIAXONE 1 GM in DEXTROSE 5%-WATER - 100 ML IVPB ONE (13:31)
[2023-01-05] MEDS ORDERED: cefTRIAXone SODIUM 1 GM VIAL ONE (13:34)
[2023-01-05 13:35] LABS: PLATELET ESTIMATE ADEQUATE
[2023-01-05 13:42] LABS: EPITHELIAL CELLS 0-5 /hpf
[2023-01-05] MEDS: ACETAMINOPHEN 500 MG TABLET (FP) PO PRN (18:02)
[2023-01-05] MEDS: SODIUM CHLORIDE 1,000 ML IV SCH (18:02)
[2023-01-05] MEDS ORDERED: CYANOCOBALAMIN (VITAMIN B-12) 1000 MCG/1 ML VIAL IM ONE (18:06)
[2023-01-05 18:50] VITALS: BMI 26.9
[2023-01-06 08:06] LABS: HEMATOCRIT 36.5 % (32.4-45.2); MCH 32.3 pg (25.7-33.7); MCHC 32.8 g/dl (32.0-36.0); MEAN CELL VOLUME 98.4 fl (80-96); MEAN PLT VOLUME 8.6 fl (7.5-11.1); PLATELET COUNT 226.8 10^3/uL (134-434); RBC 3.71 10^6/uL (3.60-5.2); RDW 13.7 % (11.6-15.6); WHITE BLOOD COUNT 4.3 10^3/uL (4.0-10.8)
[2023-01-06 08:35] LABS: ALBUMIN 3.5 g/dl (3.4-5.0); BILIRUBIN,TOTAL 0.3 mg/dl (0.2-1); CALCIUM 8.4 mg/dl (8.5-10.1); CREATININE 0.7 mg/dl (0.6-1.3); MAGNESIUM 1.9 mg/dL (1.8-2.4); PHOSPHOROUS 3.5 (2.5-4.9); POTASSIUM 3.9 mmol/L (3.5-5.1); TOT PROT 5.9 g/dl (6.4-8.2)
[2023-01-06] MEDS: CEFTRIAXONE 1 GM in DEXTROSE 5%-WATER - 50 ML IVPB SCH (09:22)
[2023-01-06] MEDS: amLODIPine BESYLATE 5 MG TABLET (FP) PO SCH (09:23)
[2023-01-06] MEDS: CHOLECALCIFEROL (VIT D3) 1,000 UNIT (25 MCG) TABLET PO SCH (09:23)
[2023-01-06] MEDS: LACTOBACILLUS ACIDOPHILUS 1 TABLET PO SCH (09:23)
[2023-01-06] MEDS: ENOXAPARIN NA (PORCINE) 40 MG/0.4 ML DISP.SYRIN SQ SCH (09:23)
[2023-01-06] MEDS ORDERED: amLODIPine BESYLATE 5 MG TABLET (FP) PO SCH (10:00)
[2023-01-06] MEDS: ACETAMINOPHEN 500 MG TABLET (FP) PO PRN ×2 (11:13→20:55)
[2023-01-06] MEDS: SODIUM CHLORIDE 1,000 ML IV SCH (17:19)
[2023-01-07] MEDS: ACETAMINOPHEN 500 MG TABLET (FP) PO PRN (03:38)
[2023-01-07 07:51] LABS: HEMOGLOBIN 11.8 G/dL (10.7-15.3); MCH 31.7 pg (25.7-33.7); MCHC 31.9 g/dl (32.0-36.0); MEAN CELL VOLUME 99.2 fl (80-96); MEAN PLT VOLUME 8.5 fl (7.5-11.1); PLATELET COUNT 257.7 10^3/uL (134-434); RBC 3.73 10^6/uL (3.60-5.2); RDW 13.8 % (11.6-15.6); WHITE BLOOD COUNT 4.1 10^3/uL (4.0-10.8)
[2023-01-07 08:26] LABS: CALCIUM 8.8 mg/dl (8.5-10.1); CREATININE 0.7 mg/dl (0.6-1.3); PHOSPHOROUS 3.8 (2.5-4.9); POTASSIUM 4.2 mmol/L (3.5-5.1)
[2023-01-07] MEDS: LACTOBACILLUS ACIDOPHILUS 1 TABLET PO SCH (10:12)
[2023-01-07] MEDS: IBUPROFEN 400 MG TABLET (FP) PO PRN ×2 (10:12→22:12)
[2023-01-07] MEDS: CHOLECALCIFEROL (VIT D3) 1,000 UNIT (25 MCG) TABLET PO SCH (10:13)
[2023-01-07] MEDS: amLODIPine BESYLATE 5 MG TABLET (FP) PO SCH (10:14)
[2023-01-07] MEDS: ENOXAPARIN NA (PORCINE) 40 MG/0.4 ML DISP.SYRIN SQ SCH (10:14)
[2023-01-07] MEDS: CEFTRIAXONE 1 GM in DEXTROSE 5%-WATER - 50 ML IVPB SCH (10:14)
[2023-01-08 00:15] VITALS: RESP 18
[2023-01-08 09:02] VITALS: BP 132/79; PULSE 66; TEMP 97.6
[2023-01-08] MEDS: amLODIPine BESYLATE 5 MG TABLET (FP) PO SCH (10:01)
[2023-01-08] MEDS: IBUPROFEN 400 MG TABLET (FP) PO PRN (10:02)
[2023-01-08] MEDS: LACTOBACILLUS ACIDOPHILUS 1 TABLET PO SCH (10:02)
[2023-01-08] MEDS: CEFTRIAXONE 1 GM in DEXTROSE 5%-WATER - 50 ML IVPB SCH (10:02)
[2023-01-08] MEDS: CHOLECALCIFEROL (VIT D3) 1,000 UNIT (25 MCG) TABLET PO SCH (10:02)
[2023-01-08] MEDS: ENOXAPARIN NA (PORCINE) 40 MG/0.4 ML DISP.SYRIN SQ SCH (10:02)
[2023-01-08 11:00] LABS: BASO % 0.5 % (0-2.0); EOS % 4.8 % (0-4.5); HEMATOCRIT 34.1 % (32.4-45.2); HEMOGLOBIN 11.2 GM/dL (10.7-15.3); LYMPH % 32.3 % (8-40); MCH 32.4 pg (25.7-33.7); MEAN CELL VOLUME 98.2 fl (80-96); MEAN PLT VOLUME 8.5 fl (7.5-11.1); MONO % 15.5 % (3.8-10.2); NEUT % 46.9 % (42.8-82.8); PLATELET COUNT 251 10^3/uL (134-434); RBC 3.47 M/mm3 (3.60-5.2); RDW 13.6 % (11.6-15.6); WHITE BLOOD COUNT 5.1 K/mm3 (4.0-10.0)
[2023-01-08 11:03] LABS: POTASSIUM 3.7 mmol/L (3.5-5.1)
[2023-01-08 11:05] LABS: BLOOD UREA NITROGEN 4.8 mg/dL (7-18); CALCIUM 8.6 mg/dL (8.5-10.1)
[2023-01-08 11:08] LABS: CREATININE 0.6 mg/dL (0.55-1.3)
[2023-01-08 11:10] LABS: BILIRUBIN,TOTAL 0.2 mg/dL (0.2-1); TOT PROT 6.1 g/dl (6.4-8.2)
[2023-01-08] MEDS ORDERED: CEPHALEXIN 250 MG/5 ML ORAL SUSPENSION PO SCH (12:00)
== END 2023-01-08 12:55 | disposition home or self-care (01) ==
LOC: FER 12:10 → FM/S 14:18
PROVIDERS: ADMIT Internal Medicine; ATTEND Internal Medicine
PROC: 3E03329 Introduction of Other Anti-infective into Peripheral Vein, Percutaneous Approach (ICD-10-PCS; principal; 2023-01-05)
PROC: 3E023GC Introduction of Other Therapeutic Substance into Muscle, Percutaneous Approach (ICD-10-PCS; 2023-01-05)
PROC: 3E0333Z Introduction of Anti-inflammatory into Peripheral Vein, Percutaneous Approach (ICD-10-PCS; 2023-01-05)
PROC: 3E0337Z Introduction of Electrolytic and Water Balance Substance into Peripheral Vein, Percutaneous Approach (ICD-10-PCS; 2023-01-05)
DX: N39.0 Urinary tract infection, site not specified (principal); Z79.899 Other long term (current) drug therapy; Z79.85 Long-term (current) use of injectable non-insulin antidiabetic drugs; N12 Tubulo-interstitial nephritis, not specified as acute or chronic; E87.1 Hypo-osmolality and hyponatremia; Z98.84 Bariatric surgery status; R31.9 Hematuria, unspecified
CPT/HCPCS: 0241U-QW; 36415; 71046-TC-FY; 74176-TC; 80048; 80053; 81003; 81015; 82306; 82607; 82746; 83605; 83690; 83735; 84100; 84439; 84443; 84484; 85025; 85027; 86140; 87086; 87186; 93005; 97116-GP; 97161-GP; 99285-25; G0378

== ENCOUNTER 2024-04-18 20:08 | Emergency (ER) | payer OTHER ==
[2024-04-18 20:19] VITALS: BP 132/88; PULSE 85; RESP 17; TEMP 98; BMI 28.8
[2024-04-18] MEDS ORDERED: ACETAMINOPHEN 325 MG TABLET (FP) ONE (21:06)
[2024-04-18] MEDS: ACETAMINOPHEN 325 MG TABLET (FP) PO ONE (21:09)
== END 2024-04-18 22:35 | disposition home or self-care (01) ==
LOC: FER 20:08
DX: S93.401A Sprain of unspecified ligament of right ankle, initial encounter (principal); S00.03XA Contusion of scalp, initial encounter; W01.0XXA Fall on same level from slipping, tripping and stumbling without subsequent striking against object, initial encounter
CPT/HCPCS: 70450-TC; 73610-TC-RT-FY; 99284-25